=== PATIENT | female | born 1940 | race Caucasian/White ===

== ENCOUNTER 2016-06-26 05:34 | Day surgery (SDC) | payer MEDICARE ==
[2016-06-25 15:25] LABS: HEMOGLOBIN 11.2 g/dL (12-16); MCH 31.5 pg (26.0-34.0); MCV 98.6 fL (80.0-100.0); MEAN PLATELET VOLUME 8.8 fL (7.4-10.4); RBC 3.55 10x6/uL (4.00-5.40); RDW 15.5 % (11.5-14.5); WBC 6.8 10x3/uL (4.8-10.8)
[~2016-06-26] VITALS: Ht 160 cm; Wt 54.9 kg
[~2016-06-26 05:34] MED LIST: BAYER CHEWABLE81 MG PO; FERROUS SULFAT325 MG PO; GABAPENTIN100 MG PO; HYDROCODONE-APA1 TAB PO; KLONOPIN1 MG PO; NICODERM C1 PATCH .1 TRANSDERM; NITROSTAT0.4 MG SL; NORVASC5 MG PO; PLAVIX75 MG PO; PROTONIX40 MG PO; ROXICODONE15 MG PO; ULTRAM50 MG PO; ZOCOR20 MG PO
[2016-06-26 11:24] VITALS: BP 143/74; Ht 160 cm; Wt 54.9 kg
[2016-06-26] MEDS ORDERED: PERCOCET 10/3251 TA1 PO (13:36)
--- NOTE | 2016-06-26 15:10 | NUR ---
DISCHARGED HOME VIA .
--- NOTE | 2016-06-30 14:52 | OP ---
PATIENT NAME: IDANIA BONILLA MEDICAL RECORD: [id number] :42 LOCATION:[facility] ADMISSION DATE: SURGEON: BALDEMAR SANCHES MD DATE OF OPERATION: 06/26/2016 PREOPERATIVE DIAGNOSES: 1. Rotator cuff tear of the right shoulder. 2. Impingement syndrome of the right shoulder. 3. Acromioclavicular arthritis of the right shoulder. POSTOPERATIVE DIAGNOSES: 1. Rotator cuff tear of the right shoulder. 2. Impingement syndrome of the right shoulder. 3. Acromioclavicular arthritis of the right shoulder. PROCEDURES: 1. Arthroscopic rotator cuff repair of the right shoulder. 2. Arthroscopic distal clavicle excision of the right shoulder done through a separate incision, 1 cm. 3. Arthroscopic subacromial decompression with acromioplasty and bursectomy. SURGEON: Baldemar Sanches MD ANESTHESIA: General. INTRAOPERATIVE COMPLICATIONS: None. SUMMARY OF PATHOLOGIC FINDINGS: The patient had full thickness rotator cuff tear with downward sloping acromion with excoriation of the coracoacromial ligament as well as acromioclavicular arthritis consistent with the preoperative diagnosis, MRI and radiographs. OPERATIVE SUMMARY IN DETAIL: After obtaining the appropriate preoperative orthopedic surgery consents as well as anesthetic consultation, evaluation and clearance, the patient was taken to the operating room and placed on the operating table in supine position. After adequate general laryngeal mask was administered, the patient was placed in left lateral decubitus position. All pressure points were well padded to include down leg peroneal pad as well as axillary roll. The patient was held firmly to the operating table using the vacuum pack suction system. Right upper extremity and shoulder were then prepped and draped in routine sterile fashion. The arm was held in the Arthrex traction boom at 30 degrees of forward flexion, 30 degrees of abduction, 10 pounds of traction laterally. Arthroscopy was established in the joint from a posterior portal. Anterior portal was established in the anterior safe interval. Diagnostic arthroscopy did reveal the above findings. Attention was first turned to debriding the articular aspect of the rotator cuff tear. It was done with an arthroscopic resector shaver. Having completed this, attention was turned to the subacromial space. While on the subacromial space, Box Elder tissue ablation system was utilized to denude the undersurface of the acromion, all soft tissue was removed along with release of the coracoacromial ligament. Having completed this, a 5-0 barrel bur was used to perform acromioplasty at the level of acromioclavicular joint. Then, through a separate anterior arthroscopic portal, distal clavicle was excised for 1 cm using the 5-0 barrel bur. Lastly, attention was turned to the OPERATIVE REPORT [id number] IDANIA BONILLA rotator cuff tear again. Further decortication was carried out across the supraspinatus tendinous footprint. A single #2 FiberTape was then passed in an inverted suture mattress. This was anchored laterally using a 5.5 SwiveLock from Arthrex. Having completed this, arthroscopy portals were closed in routine interrupted fashion using 4-0 Prolene. Sterile dressings were applied. The patient was awakened and taken to recovery room in stable condition. All final needle and sponge counts were correct. TRANSINT:[id number] Voice Confirmation ID: [id number] DOCUMENT ID: [id number] MYRON FRAZIER, BALDEMAR LEWIS at 1452 CC: [id number] DICTATION DATE: 06/26/16 1341 BOBBIN CLEANER: 06/26/16 1518 [facility] 06/26/16 [id number] [place] [address]
[2016-07-25] MEDS ORDERED: DILAUDID4 MG PO (08:12)
[2016-07-25] MEDS ORDERED: SOMA250 MG PO (08:14)
== END 2016-06-26 15:10 | disposition home or self-care (01) ==
LOC: D.OPS 05:34 → D.PAN 12:15 → D.OPS 13:15 → D.PAN 17:15 → D.OPS 17:15 → D.PAN 19:30
PROVIDERS: Anesthesiology
DX: M75.121 Complete rotator cuff tear or rupture of right shoulder, not specified as traumatic (principal); M75.41 Impingement syndrome of right shoulder; M13.811 Other specified arthritis, right shoulder

== ENCOUNTER → 2016-07-25 07:03 | Outpatient (CLI) | payer MEDICARE ==
[2016-06-26 11:24] VITALS: BMI 21.4
--- NOTE | ~2016-07-25 | HEMODYNAMI ---
PATIENT:IDANIA BONILLA MEDICAL RECORD: [id number] : 44 LOCATION:[facility] ADMISSION DATE: 07/25/16 Generatedon:07/25/201610:02 Patient name: IDANIA BONILLA Patient #: [id number] SSN: : 1940 Date of study: 07/25/2016 Page: Of Hemodynamic Procedure Report Patient Data Patient Demographics Procedure consent was obtained First Name: IDANIA Gender: Female Last Name: CHAD : 1940 Middle Initial: F Age: 75 year(s) Patient #: [id number] Race: Additional ID: [id number] Contact details Address: [address] [place] [address] ROAD State: [place] City: [place] Zip code: [address] Past Medical History Allergies Allergen Reaction Date Comments Reported Penicillins 04/07/2016 Other allergy 04/07/2016 Chantix Other allergy 07/25/2016 pcn,CHANTAX,NICODERM CQ Admission Admission Data Admission Date: 07/25/2016 Admission Time: 7:03 Insurance Payor: Medicare Height (in.): 63 BSA: 1.55 (m2) Height (cm.): 160.02 BMI: 21.08 (kg/m2) Weight (lbs.): 119 Weight (kg.): 53.98 Lab Results Lab Result Date: 07/25/2016 Lab Result Time: 7:30 Biochemistry Name Units Result Min Max BUN mg/dl 13 --(--*-)-- 7 18 Creatinine mg/dl 0.8 --(-*--)-- 0.6 1.3 CBC Name Units Result Min Max Hematocrit % 36.4 *-(----)-- 42 54 Hemoglobin g/dl 12 *-(----)-- 13.5 17.5 Procedure Procedure Types Cath Procedure Diagnostic Procedure [facility] w/Coronaries PCI Procedure Coronary Stent Initial Procedure Description Procedure Date Procedure Date: 07/25/2016 Procedure Start Time: 9:34 Procedure End Time: 9:57 Procedure Staff Name Function Michael Oliva MD Performing Physician Rima Shah RT Scrub Suad Tyler RN Nurse Richard Boo RT Social Secretary Luis Flowers RT Monitor Procedure Data Cath Procedure Fluoroscopy Diagnostic fluoroscopy Total fluoroscopy Time: 5.8 time: 5.8 min min Diagnostic fluoroscopy Total fluoroscopy dose: dose: 1075 mGy 1075 mGy Contrast Material Contrast Material Type Amount (ml) Isovue 300 122 Entry Location Entry Primary Successful Side Size Upsize Upsize Entry Closure Succes sful Closure Location (Fr) 1 (Fr) 2 (Fr) Remarks Device Remarks Femoral Right 5 Fr 6 Fr Vascade artery Short Closure System Estimated blood loss: 10 ml Diagnostic catheters Device Type Used For End Catheter Placement Cordis 5Fr Pigtail Procedure Catheter (MP) Cordis 5Fr JL 4.0 Procedure Catheter (MP) Cordis 5Fr 3DRC Catheter Procedure (MP) Procedure Complications No complications Procedure Medications Medication Administration Route Dosage Oxygen NC 2 l/min Benadryl I.V. 50 mg Lidocaine 2% added to field 20 0.9% NaCl I.V. 100 ml/hr Versed I.V. 1 mg Fentanyl I.V. 50 mcg Versed I.V. 1 mg Fentanyl I.V. 50 mcg Versed I.V. 1 mg Fentanyl I.V. 50 mcg Versed I.V. 1 mg Fentanyl I.V. 50 mcg Heparin Bolus I.V. 4000 units Nitroglycerin IC/IA I.C. 200 mcg Integrilin (Bolus I.V. 5 ml 2mg/ml) Versed I.V. 1 mg Fentanyl I.V. 50 mcg Nitroglycerin IC/IA I.C. 200 mcg Fentanyl I.V. 50 mcg Fentanyl I.V. 50 mcg Versed I.V. 1 mg Plavix P.O. 600 mg Hemodynamics Rest BSA: 1.55 (m2) HGB: 12 (g/dl) O2 Consumption: Estimated: 150.51 (ml/min) O2 Cons umption indexed: Estimated:97.1 (ml/min/m) Heart Rate: 85 (bpm) Snapshots Pre Cath Intra NCS Post Cath Vital Signs Time Heart Resp SPO2 etCO2 HV6iraf NIBP (mmHg) Rhythm Pain Sedation Rate (ipm) (%) (mmHg) (mmHg) Status Level (bpm) 9:21:02 147 22 100 0 0 No Cuff NSR 0 (11) 10(A) , No pain 9:25:20 83 17 99 0 0 153/60(119) NSR 0 (11) 10(A) , No pain 9:29:36 82 15 93 0 0 114/58(79) NSR 0 (11) 10(A) , No pain 9:33:46 89 17 96 0 0 118/51(70) NSR 0 (11) 10(A) , No pain 9:38:00 85 16 99 0 0 128/51(77) NSR 0 (11) 9(A) , No pain 9:42:08 89 16 99 0 0 107/56(73) NSR 0 (11) 9(A) , No pain 9:46:17 85 17 99 0 0 102/52(74) NSR 0 (11) 9(A) , No pain 9:50:23 90 16 97 0 0 110/57(72) NSR 0 (11) 9(A) , No pain 9:54:31 99 17 99 0 0 109/58(83) NSR 0 (11) 10(A) , No pain Medications Time Medication Route Dose Verified Delivered Reason Notes Effectiveness by by 9:24:37 Oxygen NC 2 Michael Buffie used for l/min Pj Tyler RN procedure 9:25:30 Benadryl I.V. 50 mg Michael Buffie used for Pj Tyler RN procedure 9:28:38 Lidocaine 2% added 20ml Michael Michael for local to vial Pj Oliva MD anesthetic field 9:28:54 0.9% NaCl I.V. 100 Michael Buffie Per physician ml/hr Pj Tyler RN 9:32:11 Fentanyl I.V. 50 Michael Buffie for sedation mcg Pj Tyler RN 9:32:51 Versed I.V. 1 mg Michael Buffie for sedation Pj Tyler RN 9:35:35 Versed I.V. 1 mg Michael Buffie for sedation Pj Tyler RN 9:35:39 Fentanyl I.V. 50 Michael Buffie for sedation mcg Pj Tyler RN 9:37:58 Versed I.V. 1 mg Michael Buffie for sedation Pj Tyler RN 9:38:02 Fentanyl I.V. 50 Michael Buffie for sedation mcg Pj Tyler RN 9:42:05 Versed I.V. 1 mg Michael Thomasie for sedation Pj Tyler RN 9:42:12 Fentanyl I.V. 50 Michael Buffie for sedation mcg Pj Tyler RN 9:46:26 Heparin Bolus I.V. 4000 Michael Buffie for verified units Pj Tyler RN anticoagulation with dr oliva 9:48:15 Nitroglycerin I.C. 200 Michael Rodriguez for IC/IA mcg Pj Oliva MD vasodilation 9:48:27 Integrilin I.V. 5 ml Michael Borjas for (Bolus Pj Tyler RN antiplatelet 2mg/ml) therapy 9:49:40 Versed I.V. 1 mg Michael Thomasie for sedation Pj Tyler RN 9:49:46 Fentanyl I.V. 50 Michael Buffie for sedation mcg Pj Tyler RN 9:50:25 Nitroglycerin I.C. 200 Michael Mckayrey for IC/IA mcg Pj Oliva MD vasodilation 9:51:10 Fentanyl I.V. 50 Michael Thomasie for sedation mcg Pj Tyler RN 9:52:25 Versed I.V. 1 mg Michael Borjas for sedation Pj Tyler RN 9:56:13 Fentanyl I.V. 50 Michael Thomasie for sedation mcg Pj Tyler RN 10:01:43 Plavix P.O. 600 Michael Borjas for mg Pj Tyler RN antiplatelet therapy Procedure Log Time Note 9:00:17 Richard Guardadomerlyn RT(R) sent for patient. Start room use. 9:10:24 Time tracking: Regular hours 9:10:27 Plan of Care:Hemodynamics will remain stable., Cardiac rhythm will remain stable., Comfort level will be maintained., Respiratory function will remain adequate., Patient/ family verbilizes understanding of procedure., Procedure tolerated without complication., Recovers from procedure without complications.. 9:10:31 Patient received from Outpatients to [facility] 2 Alert and oriented. Tansferred to table in Supine position. 9:10:33 Warm blankets applied, and krysten hugger turned on for patient comfort. 9:10:33 Correct patient and procedure confirmed by team. 9:10:34 Signed procedure consent form obtained from patient. 9:10:35 ECG and BP/O2 sat monitors applied to patient. 9::35 Full Disclosure recording started 9:20:12 Vital chart was started 9:24:37 Oxygen 2 l/min NC was given by Suad Tyler RN; used for procedure; :: Baseline sample Acquired. 9:25:30 Benadryl 50 mg I.V. was given by Suad Tyler RN; used for procedure; :: Rhythm: sinus rhythm 9::37 Lab Result : Creatinine 0.8 mg/dl ::37 Lab Result : BUN 13 mg/dl :: Lab Result : Hematocrit 36.4 % 9:: Lab Result : Hemoglobin 12 g/dl 9::38 Lidocaine 2% 20ml vial added to field was given by Michael Oliva MD; for local anesthetic; 9::54 0.9% NaCl 100 ml/hr I.V. was given by Suad Tyler RN; Per physician; 9::37 Diagnostic Cath Status : Elective 9:29:45 Pre-op teaching completed and patient verbalized understanding. 9:29:50 Family in waiting room. 9:29:52 Patient NPO since Midnight. 9:30:22 Patient allergic to Other allergypcn,CHANTAX,NICODERM CQ 9:30:24 Is the patient allergic to Iodine/contrast media? No. 9:30:28 Is patient on blood thinner?No 9:30:29 Patient diabetic? No. 9:30:34 Previous problem with sedation/anesthesia? No ? 9:30:35 Snore? Yes 9:30:36 Sleep apnea? No 9:30:39 Deviated septum? No 9:30:40 Opens mouth fully? Yes 9:30:41 Sticks out tongue? Yes 9:30:43 Airway obstruction? No ? 9:30:45 Dentures? No ? 9:30:48 Pre procedure: right dorsailis pedis pulse 2+ Normal; easily identifiable; not easily obliterated 9:30:51 Patient pain scale 0/10 ?. 9:31:04 IV patent on arrival in left hand with 0.9% NaCl at [facility]. 9:31:07 Lab results completed and on chart. 9:31:09 Right groin area was prepped with chlora-prep and draped in sterile fashion 9:31:11 Alarms reviewed by R. N. 9:31:12 Sharps counted by scrub and verified by R.N. 9:31:14 --------ALL STOP TIME OUT------ 9:31:14 Final Timeout: patient, procedure, and site verified with staff and physician. All members of the team are in agreement. 9:31:15 Right groin site verified by team. 9:31:18 Physical assessment completed. ASA score P 2 - A patient with mild systemic disease as per Michael Oliva MD. 9:31:21 Sedation plan: IV Moderate Sedation Versed, Fentanyl 9:31:24 Use device set Femoral Dx 9:31:26 Tegaderm 4 x 4 opened to sterile field. 9:31:29 Acist Manifold opened to sterile field. 9:31:30 Acist Hand Control opened to sterile field. 9:31:31 Acist Syringe opened to sterile field. 9:31:32 Bag Decanter opened to sterile field. 9:31:32 Cardinal Cath Pack opened to sterile field. 9:31:33 Terumo 5Fr [place] Sheath opened to sterile field. 9:31:33 St Edward 260cm J .035 wire opened to sterile field. 9:31:34 Cordis Infinity 5Fr Multipack catheter opened to sterile field. 9:31:47 ACC Patient presents with Stable Angina CCS Anginal Class 2--Slight limitation of ordinary activity. 9:32:05 H&P Date Dictated: 07/23/2016 Within 30 days and on chart., H&P Addendum completed by physician on day of procedure. (MUST COMPLETE FOR ALL OUTPATIENTS). 9:32:11 Fentanyl 50 mcg I.V. was given by Suad Tyler RN; for sedation; 9:32:51 Versed 1 mg I.V. was given by Suad Tyler RN; for sedation; 9:33:31 Procedure started. 9:33:43 Zero performed for pressure channel P1 9:34:16 Local anesthetic to right femoral artery with Lidocaine 2% by Michael Oliva MD.INITIAL ACCESS ONLY 9:34:25 A 5 Fr sheath was inserted into the Right Femoral artery 9:35:35 Versed 1 mg I.V. was given by Suad Tyler RN; for sedation; 9:35:39 Fentanyl 50 mcg I.V. was given by Suad Tyler RN; for sedation; 9:35:44 A Cordis 5Fr Pigtail Catheter (MP) was advanced over the wire and used for Procedure. 9:35:47 LV gram done using ELLIOTT 9:35:50 Injector settings: Ml/sec: 10, Volume: 20, 9:35:57 EF : 60 % 9:36:02 Catheter exchanged over wire. 9:36:06 A Cordis 5Fr JL 4.0 Catheter (MP) was advanced over the wire and used for Procedure. 9:36:51 Patient Weight : 119 lbs 9:37:03 Patient Height : 63 inches 9:37:03 Insurance Payor : Medicare 9:37:58 Versed 1 mg I.V. was given by Suad Tyler RN; for sedation; 9:38:02 Fentanyl 50 mcg I.V. was given by Suad Tyler RN; for sedation; 9:38:05 LCA angiography performed. 9:40:03 Merit BasixCompak Inflation Kit opened to sterile field. 9:40:04 Terumo 6Fr [place] Sheath opened to sterile field. 9:40:26 Catheter exchanged over wire. 9:40:30 A Cordis 5Fr 3DRC Catheter (MP) was advanced over the wire and used for Procedure. 9:40:37 RCA angiography performed. 9:41:12 Aurora Madison Eagleye IVUS Catheter opened to sterile field. 9:41:17 [place] Whisper J 300cm 0.014 guide wire opened to sterile field. 9:41:20 Catheter removed. 9:42:05 Versed 1 mg I.V. was given by Suad Tyler RN; for sedation; 9:42:05 Cordis 6FR XBLAD 4.0 guide catheter opened to sterile field. 9:42:12 Fentanyl 50 mcg I.V. was given by Suad Tyler RN; for sedation; 9:42:26 Sheath upsized to a 6 Fr Short. 9:42:31 6 Fr XBLAD 4 guide catheter was inserted over the wire 9:42:35 WHISPER wire advanced. 9:42:42 Wire advanced across lesion. 9:43:28 IVUS catheter advanced over wire. 9:43:31 IVUS pass to Circ lesion performed. 9:45:27 IVUS catheter removed over wire. 9:46:26 Heparin Bolus 4000 units I.V. was given by Suad Tyler RN; for anticoagulation; verified with dr oliva 9:48:15 Nitroglycerin IC/IA 200 mcg I.C. was given by Michael Oliva MD; for vasodilation; 9:48:27 Integrilin (Bolus 2mg/ml) 5 ml I.V. was given by Suad Tyler RN; for antiplatelet therapy; 9:49:40 Versed 1 mg I.V. was given by Suad Tyler RN; for sedation; 9:49:43 Inflation Number: 1 A Medtronic Resolute 3.5 X 15 stent was prepped and advanced across the Mid CX. The stent was deployed at 17 SHANTA for 0:10 (min:sec). 9:49:46 Fentanyl 50 mcg I.V. was given by Suad Tyler RN; for sedation; 9:50:00 ACC PCI Site: [facility] has 80% stenosis. 9:50:02 ACC Pre-intervention KVNG Flow is 1. 9:50:04 ACC Post-intervention KVNG Flow is 3. 9:50:25 Nitroglycerin IC/IA 200 mcg I.C. was given by Michael Oliva MD; for vasodilation; 9:51:10 Fentanyl 50 mcg I.V. was given by Suad Tyler RN; for sedation; 9:51:26 Inflation number: 2 The stent balloon was then re-inflated across the Mid CX to 21 SHANTA for 0:10 (min:sec). 9:51:46 Stent catheter was removed intact over wire. 9:51:47 Wire removed. 9:51:47 Guide catheter removed. 9:52:25 Versed 1 mg I.V. was given by Suad Tyler RN; for sedation; 9:52:25 Vascade 6/7 Fr Closure Device opened to sterile field. 9:52:42 Sheath removed intact; hemostasis achieved with Vascade Closure System to the Right Femoral artery. 9:52:46 Procedure ended.(Physican Out) 9:55:33 Fluoroscopy time 05.80 minutes. 9:55:37 Fluoroscopy dose: 1075 mGy 9:55:37 Flurop Dose total: 1075 9:55:42 Contrast amount:Isovue 300 122ml. 9:55:44 Sharps counted by scrub and verified by R.N. 9:56:03 Post-op/insertion site Right Femoral artery dressed using a 4 x 4 and Tegaderm. 9:56:07 Post right femoral artery:stable, soft, clean and dry 9:56:08 Post Procedure Pulses reassessed and unchanged 9:56:11 Post-procedure physical assessment completed. ASA score P 2 - A patient with mild systemic disease as per Michael Oliva MD. 9:56:13 Fentanyl 50 mcg I.V. was given by Suad Tyler RN; for sedation; 9:56:14 Post procedure rhythm: unchanged. 9:56:16 Estimated blood loss: 10 ml 9:56:18 Post procedure instruction explained to patient.Patient verbalizes understanding. 9:56:34 Patient needs reinforcement of post procedure teaching. 9:56:44 Procedure type changed to Cath procedure, Diagnostic procedure, LHC, LHC w/Coronaries, PCI procedure, Coronary Stent Initial 9:57:37 Procedure and supply charges have been captured, reviewed, submitted and are correct. 9:57:39 Procedure Complication : No complications 9:57:41 Vital chart was stopped 9:57:42 See physician's report for complete and final results. 9:57:43 Report given to Post Procedure Room. 9:57:46 Patient transfered to Post Procedure Room with Stretcher. 9:57:48 Procedure ended. 9:57:48 Full Disclosure recording stopped 9:57:55 ACC-PCI Only Patient was given prescriptions, or instructed by Michael Oliva MD to start/continue the following medications upon discharge: Plavix 9:57:57 End room use (Document Last) 10:01:43 Plavix 600 mg P.O. was given by Suad Tyler RN; for antiplatelet therapy; Intervention Summary Intervention Notes Time ActionType Lesion and Equipment Action# Pressure Duration Attributes Used 9:49:43 Place stent Mid CX Medtronic 1 17 00:10 Resolute 3.5 X 15 stent 9:51:26 Reinflate Mid CX Medtronic 2 21 00:10 stent Resolute balloon 3.5 X 15 stent Device Usage Item Name Manufacture Quantity Catalog Hospital Part Current Minima l Lot# / Number Charge Number Stock Stock Serial# Code Tegaderm 4 3M 1 [id number] [id number] [id number] 5 x 4 Acist Acist 1 63421 203572 083527 971421 Njuice Acist Hand Acist 1 78588 435768 449045 909762 5 Control Medical Systems Inc Acist Acist 1 07254 490470 533758 784712 20 Syringe Medical Systems Inc Bag Microtek 1 2002S 659621 33073 326067 5 Decanter Medical Inc. Cardinal Cardinal [address] [id number] 73593 066995 5 Cath Pack Health Terumo 5Fr Terumo 1 [id number] 673113 551330 105276 [address] Edward 1 366594 283413 457672 972617 30 260cm J .035 wire Cordis Cardinal 1 [id number] 926316 50944 175534 30 Infinity Health 5Fr Multipack catheter Cordis 5Fr Cardinal 1 354177 5 Pigtail Health Catheter (MP) Cordis 5Fr Cardinal 1 [id number] 5 JL 4.0 Health Catheter (MP) [facility] 1 [id number] 096636 310364 160196 15 BasixCompak Medical Inflation Kit Terumo 6Fr Terumo 1 [id number] 196102 627215 807311 40 [place] Sheath Cordis 5Fr Cardinal 1 239656 5 3DRC Health Catheter (MP) [facility] Aurora 1 [id number] 488170 629625 267722 8 [place] IVUS Catheter Camargo Camargo 1 [id number] 788454 159124 627709 5 Whisper J Vascular 300cm 0.014 guide wire Cordis 6FR Cardinal 1 [id number] 948158 968887 455591 3 XBLAD 4.0 Health guide catheter Medtronic Medtronic 1 [id number] 263142 982541 4 [id number] Resolute 3.5 X 15 stent Vascade 6/7 Cardiva 1 [id number] 327726 197709 485150 5 Fr Closure Medical, Device Inc. Signature Audit Lennox Stage Time Signature Unsigned Intra-Procedure 07/25/2016 Luis Flowers 10:02:25 AM RT(R) Signatures Monitor : Luis Flowers RT Signature : Date : Time : [facility] [address] [place] [address]
[~2016-07-25 07:03] MED LIST changes: +DILAUDID4 MG PO; +PERCOCET 10/3251 TA1 PO; +SOMA250 MG PO
[2016-07-25 08:05] LABS: ANION GAP 12.7 mmol/L (8-16); CALCIUM 9.3 mg/dL (8.5-10.1); CARBON DIOXIDE 25.4 mmol/L (21.0-32.0); CREATININE - SERUM 0.8 mg/dL (0.6-1.3); POTASSIUM - SERUM 4.1 mmol/L (3.5-5.1)
[2016-07-25 08:26] LABS: BASOPHILS 0.2 % (0.0-2.0); EOSINOPHILS 2.4 % (0-7); HEMATOCRIT 36.4 % (36.0-48.0); IMMATURE GRANULOCYTES 0.2 % (0-5); LYMPHOCYTES 23.3 % (15-50); MCV 97.1 fL (80.0-100.0); MEAN PLATELET VOLUME 9.1 fL (7.4-10.4); MONOCYTES 7.2 % (2-11); NEUTROPHILS 66.7 % (40-80); PLATELET COUNT 287 10x3/uL (130-400); RBC 3.75 10x6/uL (4.00-5.40); RDW 14.1 % (11.5-14.5)
--- NOTE | 2016-07-31 13:59 | OP ---
PATIENT NAME: IDANIA BONILLA MEDICAL RECORD: [id number] :42 LOCATION:D.CAT ADMISSION DATE: SURGEON: MELANIA MARTINEZ MD DATE OF OPERATION: 07/25/2016 PROCEDURES: 1. PTCA stent left circumflex. 2. Intravascular ultrasound of left circumflex. 3. Left heart catheterization. 4. Selective coronary angiography. 5. Left ventriculogram. INDICATION: Angina and coronary artery disease. PROCEDURE IN DETAIL: After informed consent was obtained and after a detailed explanation of the risks, benefits, as well as alternative therapies, the patient elected to proceed with angiogram and angioplasty. The right radial area was prepped and draped in normal sterile fashion. Right radial artery was cannulated via modified Seldinger technique with placement of 6-Bengali sheath. All catheters exchanged through this sheath. FINDINGS: The left ventriculogram was performed in the standard 30-degree ELLIOTT view, reveals good cardiac wall motion throughout all segments. Overall ejection fraction estimated at 60%. SELECTIVE CORONARY ANGIOGRAPHY: 1. Left main showed no significant angiographic disease. 2. Left anterior descending has previously placed stents, these are widely patent with no significant restenosis. No disease else avila throughout the LAD or its branches. 3. Left circumflex has previously placed stents, there is a hazy area, intravascular ultrasound determined that this is greater than 80% stenosed. This is in-stent restenosis. Otherwise, the circumflex has only mild irregularities. 4. Right coronary has moderate irregularities, but no flow-limiting stenosis. PTCA STENT OF THE LEFT CIRCUMFLEX: The stent used was a 3.5 x 15 mm Resolute stent taken to 21 atmospheres. Result was 0% residual stenosis. OVERALL IMPRESSION: Successful percutaneous transluminal coronary angioplasty stent of the left circumflex going from 80% initial stenosis confirmed by intravascular ultrasound to 0% residual. TRANSINT:[id number] Voice Confirmation ID: [id number] DOCUMENT ID: [id number] MELANIA MARTINEZ MD at 1359 CC: [id number] DICTATION DATE: 07/25/16 0957 INDUSTRIAL WASTE TREATMENT TECHNICIAN: 07/25/16 1343 DEP CLI 07/25/16 [place] [address]
== END | disposition home or self-care (01) ==
LOC: D.CATH
PROVIDERS: Internal Medicine Interventional Cardiology
DX: I25.119 Atherosclerotic heart disease of native coronary artery with unspecified angina pectoris (principal); T82.855A Stenosis of coronary artery stent, initial encounter
CPT/HCPCS: 92978; 93458; C9600

== ENCOUNTER → 2016-07-30 13:19 | Outpatient (CLI) | payer MEDICARE ==
[2016-07-25 08:22] VITALS: BMI 21.1
== END | disposition home or self-care (01) ==
LOC: D.MRI 07-29 13:00
DX: M25.511 Pain in right shoulder (principal)

== ENCOUNTER 2017-01-29 14:30 | Emergency (ER) | payer MEDICARE ==
[2016-07-25 08:22] VITALS: BMI 21.1
== END 2017-01-29 17:05 | disposition home or self-care (01) ==
LOC: D.ER 14:30
DX: S40.011A Contusion of right shoulder, initial encounter (principal); S70.01XA Contusion of right hip, initial encounter; W10.9XXA Fall (on) (from) unspecified stairs and steps, initial encounter; I44.0 Atrioventricular block, first degree

== ENCOUNTER 2017-02-18 15:49 | Emergency (ER) | payer MEDICARE ==
[2016-07-25 08:22] VITALS: BMI 21.1
[2017-02-18 16:39] LABS: BASOPHILS 0.5 % (0-2); EOSINOPHILS 3.2 % (0-7); HEMATOCRIT 33.1 % (36.0-48.0); IMMATURE GRANULOCYTES 0.1 % (0-5); LYMPHOCYTES 23.7 % (15-50); MCH 31.4 pg (26.0-34.0); MCHC 33.2 g/dL (31.0-37.0); MCV 94.6 fL (80.0-100.0); MEAN PLATELET VOLUME 8.8 fL (7.4-10.4); MONOCYTES 7.1 % (2-11); NEUTROPHILS 65.4 % (40-80); PLATELET COUNT 293 10x3/uL (130-400); RDW 14.5 % (11.5-14.5); WBC 7.3 10x3/uL (4.8-10.8)
[2017-02-18 16:53] LABS: ALBUMIN 3.3 g/dL (3.4-5.0); ALKALINE PHOSPHATASE 203 U/L (46-116); ALT (SGPT) 13 U/L (10-68); BILIRUBIN - TOTAL 0.13 mg/dL (0.2-1.3); CALC OSMOLALITY 272 mosm/kg (275-300); CALCIUM 8.2 mg/dL (8.5-10.1); CARBON DIOXIDE 19.3 mmol/L (21.0-32.0); CHLORIDE - SERUM 105 mmol/L (98-107); GLUCOSE 108 mg/dL (74-106); POTASSIUM - SERUM 4.9 mmol/L (3.5-5.1); SODIUM 134 mmol/L (136-145); UREA NITROGEN 23 mg/dL (7-18); eGFR NON AFRICAN AMERICAN 57 mL/min (90-120)
[2017-02-18 17:17] LABS: CKMB 0.5 U/L (0.0-3.6); CREATINE KINASE 69 UL (21-215); PRO BNP 117 pg/mL (0-125)
[2017-02-18 17:20] LABS: TROPONIN-I < 0.017 ng/mL (0.000-0.060)
== END 2017-02-18 18:21 | disposition home or self-care (01) ==
LOC: D.ER 15:49
PROVIDERS: Emergency Medicine
DX: F43.9 Reaction to severe stress, unspecified (principal); R07.9 Chest pain, unspecified

== ENCOUNTER 2017-02-24 13:06 | Emergency (ER) | payer MEDICARE ==
[2016-07-25 08:22] VITALS: BMI 21.1
[2017-02-24 13:40] LABS: BASOPHILS 0.1 % (0-2); EOSINOPHILS 2.8 % (0-7); HEMATOCRIT 33.1 % (36.0-48.0); HEMOGLOBIN 11.1 g/dL (12-16); IMMATURE GRANULOCYTES 0.1 % (0-5); LYMPHOCYTES 20.8 % (15-50); MCH 31.3 pg (26.0-34.0); MCHC 33.5 g/dL (31.0-37.0); MCV 93.2 fL (80.0-100.0); MEAN PLATELET VOLUME 8.3 fL (7.4-10.4); NEUTROPHILS 69.2 % (40-80); PLATELET COUNT 340 10x3/uL (130-400); RBC 3.55 10x6/uL (4.00-5.40); RDW 14.1 % (11.5-14.5); WBC 7.7 10x3/uL (4.8-10.8)
[2017-02-24 14:05] LABS: ALBUMIN 3.2 g/dL (3.4-5.0); ALKALINE PHOSPHATASE 126 U/L (46-116); ALT (SGPT) 13 U/L (10-68); BILIRUBIN - TOTAL 0.16 mg/dL (0.2-1.3); CALCIUM 8.5 mg/dL (8.5-10.1); CARBON DIOXIDE 23.2 mmol/L (21.0-32.0); CHOLESTEROL, TOTAL 139 mg/dL (0-200); CKMB 0.4 U/L (0.0-3.6); CREATINE KINASE 59 UL (21-215); CREATININE - SERUM 0.9 mg/dL (0.6-1.3); GLUCOSE 90 mg/dL (74-106); HDL CHOLESTEROL 69 mg/dL (32-96); LDL CHOLESTEROL 55 mg/dL (0-100); LDL-HDL RATIO 0.8 ratio (1.5-3.5); PROTEIN - SERUM 7.3 g/dL (6.4-8.2); TRIGLYCERIDE 76 mg/dL (30-200); UREA NITROGEN 8 mg/dL (7-18); eGFR NON AFRICAN AMERICAN 65 mL/min (90-120)
[2017-02-24 14:14] LABS: TROPONIN-I < 0.017 ng/mL (0.000-0.060)
[2017-02-24 14:28] LABS: CALC OSMOLALITY 269 mosm/kg (275-300); CHLORIDE - SERUM 102 mmol/L (98-107); SODIUM 136 mmol/L (136-145)
== END 2017-02-24 17:01 | disposition home or self-care (01) ==
LOC: D.ER 13:06
PROVIDERS: Family Medicine
DX: R07.9 Chest pain, unspecified (principal); Z86.79 Personal history of other diseases of the circulatory system; R05 Cough; R06.2 Wheezing; K21.9 Gastro-esophageal reflux disease without esophagitis; I10 Essential (primary) hypertension; F17.200 Nicotine dependence, unspecified, uncomplicated

== ENCOUNTER 2018-03-04 17:12 | Inpatient (IN) | payer MEDICARE ==
[~2018-03-04] VITALS: Ht 160 cm; Wt 68.0 kg
[2018-03-04] MEDS ORDERED: LISINOPRIL5 MG PO (17:48)
[2018-03-04] MEDS ORDERED: FUROSEMIDE20 MG PO (17:50)
[2018-03-04 18:17] LABS: BASOPHILS 0.3 % (0-2); EOSINOPHILS 3.1 % (0-7); LYMPHOCYTES 20.3 % (15-50); MCHC 30.8 g/dL (31.0-37.0); MCV 97.2 fL (80.0-100.0); MEAN PLATELET VOLUME 8.4 fL (7.4-10.4); MONOCYTES 5.3 % (2-11); PLATELET COUNT 347 10x3/uL (130-400); RBC 2.47 10x6/uL (4.00-5.40); WBC 7.7 10x3/uL (4.8-10.8)
[2018-03-04 18:31] LABS: HEMOGLOBIN 7.4 g/dL (12-16)
[2018-03-04 18:46] LABS: ALBUMIN 2.8 g/dL (3.4-5.0); ANION GAP 13.9 mmol/L (8-16); CALCIUM 7.9 mg/dL (8.5-10.1); CARBON DIOXIDE 24.6 mmol/L (21.0-32.0); CREATININE - SERUM 0.9 mg/dL (0.6-1.3); POTASSIUM - SERUM 3.5 mmol/L (3.5-5.1); PROTEIN - SERUM 6.2 g/dL (6.4-8.2)
[2018-03-04 19:13] LABS: BILIRUBIN - TOTAL 0.04 mg/dL (0.2-1.3)
[2018-03-04 19:34] LABS: APTT 28.6 SECONDS (22.8-39.4); INR 0.97 (0.85-1.17); PROTIME 12.5 SECONDS (11.6-15.0)
[2018-03-04 19:44] LABS: CREATINE KINASE 76 UL (21-215); TROPONIN-I < 0.017 ng/mL (0.000-0.060)
[2018-03-04 19:45] VITALS: BP 125/59
[2018-03-04 20:30] VITALS: BP 118/42
[2018-03-04 22:30] VITALS: BP 119/52
[2018-03-05] VITALS (9 sets, daily range): BP systolic 121–151; BP diastolic 42–56; Ht 160 cm; Wt 68.0 kg
[2018-03-05 10:16] LABS: BASOPHILS 0.4 % (0-2); EOSINOPHILS 2.5 % (0-7); IMMATURE GRANULOCYTES 0.1 % (0-5); LYMPHOCYTES 18.4 % (15-50); MCH 29.5 pg (26.0-34.0); MCHC 31.8 g/dL (31.0-37.0); MEAN PLATELET VOLUME 8.7 fL (7.4-10.4); MONOCYTES 8.4 % (2-11); NEUTROPHILS 70.2 % (40-80); PLATELET COUNT 307 10x3/uL (130-400); RBC 3.56 10x6/uL (4.00-5.40); RDW 22.3 % (11.5-14.5); WBC 8.1 10x3/uL (4.8-10.8)
[2018-03-05 10:17] LABS: HEMOGLOBIN 10.5 g/dL (12-16); MCV 92.7 fL (80.0-100.0)
[2018-03-05 10:44] LABS: ANION GAP 11.2 mmol/L (8-16); CARBON DIOXIDE 27.7 mmol/L (21.0-32.0); CREATININE - SERUM 0.8 mg/dL (0.6-1.3); POTASSIUM - SERUM 3.9 mmol/L (3.5-5.1)
[2018-03-06 04:40] VITALS: BP 131/51
[2018-03-06 06:31] LABS: BASOPHILS 0.2 % (0-2); EOSINOPHILS 0.8 % (0-7); HEMATOCRIT 31.8 % (36.0-48.0); IMMATURE GRANULOCYTES 0.3 % (0-5); LYMPHOCYTES 11.5 % (15-50); MCH 29.7 pg (26.0-34.0); MCHC 31.4 g/dL (31.0-37.0); MCV 94.4 fL (80.0-100.0); MEAN PLATELET VOLUME 8.7 fL (7.4-10.4); MONOCYTES 5.6 % (2-11); NEUTROPHILS 81.6 % (40-80); PLATELET COUNT 319 10x3/uL (130-400); RBC 3.37 10x6/uL (4.00-5.40); RDW 21.9 % (11.5-14.5)
[2018-03-06 06:32] LABS: WBC 11.4 10x3/uL (4.8-10.8)
[2018-03-06 06:57] LABS: ALBUMIN 2.6 g/dL (3.4-5.0); ALKALINE PHOSPHATASE 94 U/L (46-116); ALT (SGPT) 15 U/L (10-68); BILIRUBIN - TOTAL 0.31 mg/dL (0.2-1.3); CALC OSMOLALITY 281 mosm/kg (275-300); CARBON DIOXIDE 27.3 mmol/L (21.0-32.0); CHLORIDE - SERUM 107 mmol/L (98-107); CREATININE - SERUM 0.7 mg/dL (0.6-1.3); GLUCOSE 111 mg/dL (74-106); POTASSIUM - SERUM 3.8 mmol/L (3.5-5.1); SODIUM 142 mmol/L (136-145); eGFR NON AFRICAN AMERICAN 86 mL/min (90-120)
[2018-03-06 06:58] LABS: UREA NITROGEN 8 mg/dL (7-18)
[2018-03-06 07:57] LABS: INR 1.07 (0.85-1.17); PROTIME 13.5 SECONDS (11.6-15.0)
[2018-03-06 11:01] VITALS: BP 137/61
[2018-03-06 15:11] VITALS: BP 119/43
[2018-03-06 21:30] VITALS: BP 149/62
[2018-03-07 00:50] VITALS: BP 150/57
[2018-03-07 05:39] LABS: BASOPHILS 0.6 % (0-2); EOSINOPHILS 3.9 % (0-7); HEMOGLOBIN 9.9 g/dL (12-16); LYMPHOCYTES 23.6 % (15-50); MCH 29.6 pg (26.0-34.0); MCHC 30.9 g/dL (31.0-37.0); MCV 95.5 fL (80.0-100.0); MEAN PLATELET VOLUME 8.8 fL (7.4-10.4); MONOCYTES 8.4 % (2-11); NEUTROPHILS 63.5 % (40-80); PLATELET COUNT 343 10x3/uL (130-400); RBC 3.35 10x6/uL (4.00-5.40); RDW 21.1 % (11.5-14.5)
[2018-03-07 05:42] LABS: WBC 5.4 10x3/uL (4.8-10.8)
[2018-03-07 05:53] LABS: ALBUMIN 2.5 g/dL (3.4-5.0); ALKALINE PHOSPHATASE 90 U/L (46-116); ALT (SGPT) 12 U/L (10-68); BILIRUBIN - TOTAL 0.17 mg/dL (0.2-1.3); CALC OSMOLALITY 289 mosm/kg (275-300); CALCIUM 8.1 mg/dL (8.5-10.1); CARBON DIOXIDE 30.8 mmol/L (21.0-32.0); CHLORIDE - SERUM 108 mmol/L (98-107); CREATININE - SERUM 0.7 mg/dL (0.6-1.3); GLUCOSE 91 mg/dL (74-106); PROTEIN - SERUM 5.9 g/dL (6.4-8.2); SODIUM 146 mmol/L (136-145); UREA NITROGEN 9 mg/dL (7-18); eGFR NON AFRICAN AMERICAN 86 mL/min (90-120)
[2018-03-07 05:55] LABS: POTASSIUM - SERUM 3.2 mmol/L (3.5-5.1)
[2018-03-07] MEDS ORDERED: PLAVIX75 MG PO (12:34)
[2018-03-07] MEDS ORDERED: CARAFATE1 G/10 ML PO (12:35)
[2018-03-07] MEDS ORDERED: PROTONIX40 MG PO (12:36)
== END 2018-03-07 17:40 | disposition home or self-care (01) | DRG 378 ==
LOC: D.ER 17:12 → D.MS 21:59
PROVIDERS: Family Medicine; Internal Medicine Gastroenterology; Internal Medicine Nephrology
PROC: 0DD38ZX Extraction of Lower Esophagus, Via Natural or Artificial Opening Endoscopic, Diagnostic (ICD-10-PCS; 2018-03-06)
PROC: 0DD78ZX Extraction of Stomach, Pylorus, Via Natural or Artificial Opening Endoscopic, Diagnostic (ICD-10-PCS; principal; 2018-03-06 10:12)
DX: K26.4 Chronic or unspecified duodenal ulcer with hemorrhage (principal); D62 Acute posthemorrhagic anemia; I82.532 Chronic embolism and thrombosis of left popliteal vein; K22.10 Ulcer of esophagus without bleeding; F17.203 Nicotine dependence unspecified, with withdrawal; K44.9 Diaphragmatic hernia without obstruction or gangrene; R60.9 Edema, unspecified; R53.1 Weakness; G40.909 Epilepsy, unspecified, not intractable, without status epilepticus; I25.10 Atherosclerotic heart disease of native coronary artery without angina pectoris; Z95.5 Presence of coronary angioplasty implant and graft; J43.9 Emphysema, unspecified; K21.9 Gastro-esophageal reflux disease without esophagitis; I25.2 Old myocardial infarction; F17.210 Nicotine dependence, cigarettes, uncomplicated; M25.511 Pain in right shoulder